=== PATIENT | female | born 1955 | race Caucasian/White ===

== ENCOUNTER 2024-09-14 10:12 | Emergency (ER) | payer MEDICARE, SELFPAY ==
[2024-09-14 10:27] VITALS: BP 175/85
[2024-09-14 11:47] LABS: Hematocrit 34.4 % (37.0-47.0); Hemoglobin 11.3 g/dL (12.0-16.0); Mean Corp Hgb Conc. 32.8 g/dL (33.0-37.0); Mean Corpuscular Hgb 29.4 pg (27.0-31.0); Mean Corpuscular Volume 89.4 fL (81.0-99.0); Mean Platelet Volume 11.9 fL (7.4-10.4); Platelet Count 363 10^3/uL (130-400); Red Blood Cell Count 3.85 10^6/uL (4.20-5.40); Red Cell Dist. Width 16.8 % (11.5-14.5)
[2024-09-14 12:02] LABS: ALT (SGPT) 26 U/L (0-35); AST (SGOT) 47 U/L (14-36); Alkaline Phosphatase 112 U/L (38-126); Blood Urea Nitrogen 20 mg/dl (7-17); Calcium 10.2 mg/dl (8.4-10.2); Carbon Dioxide 26 mmol/L (22-30); Chloride 100 mmol/L (98-107); Glucose 94 mg/dl (70-99); Potassium 4.8 mmol/L (3.5-5.1); Sodium 140 mmol/L (135-145); Total Bilirubin 0.4 mg/dl (0.2-1.3); Total Protein 7.3 g/dl (6.3-8.2); eGFR > 60.00
--- NOTE | 2024-09-14 12:10 | ED.GENMED ---
History of Present Illness
General
Chief Complaint: Abnormal Lab Value
Source: patient
Exam Limitations: none
Time Seen by Provider: 09/14/24 10:53
Nursing documentation reviewed up to this point in time: agreed with
History of Present Illness
History of Present Illness:
69-year-old female presenting to the emergency department after she was found to have a white blood cell count of 90,000 as an outpatient. No complaints this is routine blood work. She gets blood work once a year. She denies any similar issues in
the past. Denies any new medications or specific concerns otherwise.
Review of Systems
Review of Systems
Allergies reviewed?: Yes
All Other Systems: ROS reviewed and negative except as documented in HPI and ROS
Phy Exam
Physical Exam
Physical Exam:
GENERAL: Alert , in no apparent distress
EYE: pupils equal and reactive
NECK: Supple, no significant adenopathy.
ENT: o/p clr, mmm.
CARDIAC: Regular rate and rhythm .
LUNGS: Clear breath sounds bilaterally, no acute respiratory distress, no wheezes/rales/rhonchi
ABDOMEN: Soft, without focal tenderness, no r/g, no cvat
NEUROLOGICAL: Alert and oriented, no focal neuro deficits
SKIN: Warm and dry, skin intact.
MUSCULOSKELETAL: No edema, well perfused.
PSYCH: Normal and appropriate interaction.
Course
Orders/Labs/Results
Orders:
Orders
09/14/24 11:37
CBC/With Diff [Complete Blood Count/With Diff] Urgent
CMP [Comprehensive Metabolic Panel] Urgent
Manual Differential Urgent
Abnormal Lab Results
09/14/24
11:37
WBC 96.2 H* 10^3/uL
(4.8-10.8)
RBC 3.85 L 10^6/uL
(4.20-5.40)
Hgb 11.3 L g/dL
(12.0-16.0)
Hct 34.4 L %
(37.0-47.0)
MCHC 32.8 L g/dL
(33.0-37.0)
RDW 16.8 H %
(11.5-14.5)
MPV 11.9 H fL
(7.4-10.4)
BUN 20 H mg/dl
(7-17)
AST 47 H U/L
(14-36)
09/14/24 11:37
09/14/24 11:37
Vital Signs
Initial and Last Documented VS:
Initial Vital Signs
Temp Pulse Resp BP Pulse Ox
97.7 F 100 16 175/85 94
09/14/24 10:27 09/14/24 10:27 09/14/24 10:27 09/14/24 10:27 09/14/24 10:27
Last Documented Vital Signs
Temp Pulse Resp BP Pulse Ox
97.7 F 104 18 146/66 96
09/14/24 10:27 09/14/24 13:53 09/14/24 13:53 09/14/24 13:53 09/14/24 14:17
MDM/Problems Addressed
MDM/Problems Addressed:
69-year-old female presenting to the emergency department today with concerns of elevated white blood cell count seen as an outpatient with routine blood work from her primary care doctor. She denies any current symptoms or concerns. Upon arrival
blood pressure elevated heart rate slightly elevated otherwise vital signs are normal. She denies any recent illnesses or changes in medications. Denies any abdominal pain. Labs showing white blood cell count of 96.2 was sent to pathology where
they saw significant amount of neutrophils and immature cells and some blast cells. This was discussed directly with hematology that recommends close outpatient follow-up considering she is asymptomatic. This was described fully to the patient who
demonstrated understanding. Return precautions given.
*Critical Care Note
Total Time (30-74mins, 75-104mins- exclusive of procedures): Not Applicable
ED Attending Note
-
Portions of this chart may have been created with voice recognition software.� Occasional wrong word or��sound alike� substitutions may have occurred due to the inherent limitations of voice recognition software.
Discharge Plan
Departure
Patient Disposition: Home (Routine Discharge)
Date of Disposition: 09/14/24
Time of Disposition: 15:42
Patient with high blood pressure during this ER visit?: No
Condition: Good
Covid-19: Not Applicable
Discharge Problem:
Neutrophilic leukocytosis
Instructions: White blood cell differential
Prescriptions:
No Action
cyanocobalamin (vitamin B-12) 1,000 mcg Tablet
1,000 mcg PO DAILY
Theragen Tablet
1 tab PO DAILY
calcium carbonate [Calcium 500] 500 mg calcium (1,250 mg) Tablet
500 mg PO TID
ascorbic acid (vitamin C) [Vitamin C] 500 mg Tablet
500 mg PO DAILY
ibuprofen [Motrin] 400 mg Tablet
400 mg PO BIDPRN PRN (Reason: back pains)
pseudoephedrine HCl [Sufedrin] 60 mg Tablet
30 mg PO DAILY
vitamin E 268 mg (400 unit) Capsule
268 mg PO DAILY
Ala-Hist 6-25 mg Tablet Extended Release 12 Hr
1.5 tab PO DAILY
Referrals:
Scott Blanco MD [Family Provider] -
Rogers Gee MD [Active] - Follow up in 1 week
Activity Restrictions/Additional Instructions:
Here you were found to have significant elevated white count as well as neutrophil count. Please follow closely with the earth science faculty member. Please call [phone] to schedule. Return to the emergency department immediately for any worsening, new or
concerning symptoms.
Interventions
Interventions:
*Risk Screen - Suicide Last Done: 09/14/24 10:27
*General Assessment Last Done: 09/14/24 10:27
*Neglect/Abuse Screening Last Done: 09/14/24 14:17
ED- Fall Risk Assessment Last Done: 09/14/24 14:19
*ED COVID-19 Vaccine History Last Done: 09/14/24 10:27
Discharge Date and Time
Print Language: SAMMARINESE
[2024-09-14 12:21] LABS: Eosinophils 1 % (0-6)
[2024-09-14 12:22] LABS: Normal RBC Morphology Yes; Nucleated Red Blood Cells 2 (-); Platelets Checked Yes; Total Cells Counted 100
[2024-09-14 13:53] VITALS: BP 146/66
[2024-09-14 14:16] VITALS: BMI 18.3
[2024-09-14 15:22] LABS: White Blood Cell Count 96.2 10^3/uL (4.8-10.8)
[2024-09-14 16:12] LABS: Absolute Neutrophils -Man Diff 71.1 10^3/uL (1.4-6.5); Band Neutrophils 34 % (0-3); Lymphocytes 2 % (20-51); Metamyelocytes 8 % (-); Monocytes 4 % (2-9); Segmented Neutrophils 40 % (42-75)
[2024-09-14 16:13] LABS: Myelocytes 7 % (-)
[2024-09-14 16:14] LABS: Blasts 4 % (-)
== END 2024-09-14 15:54 | disposition home or self-care (01) ==
LOC: EMR 10:12
PROVIDERS: Physician Assistant; EMERGENCY PHYSICIAN Emergency Medicine; FAMILY PHYSICIAN Family Medicine
DX: D72.828 Other elevated white blood cell count (principal)
CPT/HCPCS: 99283; 80053; 85025